=== PATIENT | female | born 1960 | race Caucasian/White ===

== ENCOUNTER 2019-11-20 11:10 | Emergency (ER) | payer BC ==
--- NOTE | 2019-11-20 11:40 | UC ---
Lower Extremity/Ankle HPI - HPI Summary HPI Summary: 59 yo female presents with RIGHT foot pain. She tells me that about 3 months ago she hit the top of her foot against a desk at work. Hurt for a few minutes and then went away. Does not recall the days immediately following that event, but since around that time has noticed pain in the same area that is mostly at night. She states the pain is present mildly almost all the time throughout the day, especially with weight bearing, but at night when she puts her foot up in bed or in a chair it will ache along her dorsal distal 4th MT. She notices that the pain is improved with supportive shoes and worse barefoot or with thin slippers. She has been taking ibuprofen, which has helped, but pain continues. She denies numbness, tingling, falls, ankle or leg pain. - History of Current Complaint Stated Complaint: RT FOOT PAIN Time Seen by Provider: 11/20/19 11:39 Hx Obtained From: Patient Hx Last Menstrual Period: 04/12 Severity Initially: Moderate Severity Currently: Moderate Pain Intensity: 5 Pain Scale Used: 0-10 Numeric Aggravating Factor(s): Standing, Ambulation Alleviating Factor(s): Rest Able to Bear Weight: Yes - Allergies/Home Medications Allergies/Adverse Reactions: Allergies Allergy/AdvReac Type Severity Reaction Status Date / Time No Known Allergies Allergy Verified 11/20/19 11:43 Home Medications: Home Medications Acetaminophen TAB* [Tylenol TAB*] 1,000 mg PO Q4H PRN 05/12/13 [History Confirmed 11/20/19] Ibuprofen TAB* [Advil TAB*] 400 mg PO Q6H PRN 05/12/13 [History Confirmed ] Hydrochlorothiazide TAB* [Hydrodiuril TAB*] 12.5 mg PO DAILY 11/20/19 [History Confirmed 11/20/19] Losartan TAB* [Cozaar TAB*] 100 mg PO DAILY 11/20/19 [History Confirmed 11/20/19 ] PMH/Surg Hx/FS Hx/Imm Hx - Additional Past Medical History Additional PMH: None - Surgical History Surgical History: Yes Surgery Procedure, Year, and Place: left knee 2009 - Family History Known Family History: Positive: None - Social History Occupation: Employed Full-time Lives: With Family Alcohol Use: Occasionally Substance Use Type: None Smoking Status (MU): Never Smoked Tobacco Review of Systems All Other Systems Reviewed And Are Negative: No Constitutional: Positive: Negative Skin: Positive: Negative Respiratory: Positive: Negative Cardiovascular: Positive: Negative Neurovascular: Positive: Negative Musculoskeletal: Positive: Other: - Right foot pain Neurological/Mental Status: Positive: Negative Psychological: Positive: Negative Physical Exam - Summary Physical Exam Summary: GENERAL: NAD. WDWN. No pain distress. SKIN: No rashes, sores, lesions, or open wounds. CHEST: No accessory muscle use. Breathing comfortably and in no distress. CV: Pulses intact PT and DP. Cap refill <2seconds MSK: RIGHT FOOT: Mild TTP at distal 4th MT worse with flexion of toes. Strength 5/5. No edema or obvious bony deformities. NEURO: Alert. Sensations intact and symmetric B/L LEs PSYCH: Age appropriate behavior. Triage Information Reviewed: Yes Vital Signs: Vital Signs: Temp Pulse Resp BP Pulse Ox 98.3 F 66 15 157/76 100 11/20/19 11:46 11/20/19 11:46 11/20/19 11:46 11/20/19 11:46 11/20/19 11:46 Vital Signs Reviewed: Yes Diagnostics - Radiology Foot XR Radiology Interpretation Completed By: Radiologist Summary of Radiographic Findings: IMPRESSION: OSTEOPENIA. OSTEOARTHRITIS. NO ACUTE OSSEOUS INJURY. IF SYMPTOMS PERSIST, RECOMMEND REPEAT IMAGING. Lower Extremity Course/Dx - Course Course Of Treatment: XR negative as above. I am unsure the exact cause of her discomfort at this time, but favor MSK in nature. DDx tendinitis, arthritis, occult fx/malalignment, or less likely neuroma. I advised her to continue NSAID therapy and try a shoe insert for comfort. She was placed in a CAM boot for comfort and advised to try this when weight bearing for 1 week. Will refer her to podiatry for further evaluation. - Differential Dx/Diagnosis Provider Diagnosis: Foot pain Discharge ED - Sign-Out/Discharge Documenting (check all that apply): Patient Departure All imaging exams completed and their final reports reviewed: Yes - Discharge Plan Condition: Stable Disposition: HOME Patient Education Materials: Metatarsalgia (DC) Referrals: Emerita Hutchison [Primary Care Provider] - Matteo Madden DPM [Doctor of Podiatric Medicine] - As Soon As Possible Kadlecik,Arron, DPM [Doctor of Podiatric Medicine] - As Soon As Possible Additional Instructions: If you develop a fever, shortness of breath, chest pain, new or worsening symptoms - please call your PCP or go to the ED immediately. Your blood pressure was high at todays visit. Please see your primary provider within 4 weeks for recheck and re-evaluation. 1) The X-ray of your foot did not show any acute findings today. 2) I suspect you may be having some tendinitis or underlying chronic musculoskeletal inflammation. I recommend trying an over the counter shoe insert to cushion your step. May also try the walking boot for 5-7 days to use when you are weight bearing. 3) I recommend that you follow up with a uniform designer at the number below for further evaluation. - Billing Disposition and Condition Condition: STABLE Disposition: Home - Attestation Statements Provider Attestation: This patient was not seen by me. I was available for consult. Chart reviewed. SOREN
[2019-11-20 11:50] VITALS: BP 157/76
== END 2019-11-20 12:28 | disposition home or self-care (01) ==
LOC: UCCORT 11:10
DX: M79.671 Pain in right foot (principal); M85.871 Other specified disorders of bone density and structure, right ankle and foot; M19.071 Primary osteoarthritis, right ankle and foot
CPT/HCPCS: 99212; G0463